=== PATIENT | female | born 1990 | race American Indian/Alaskan Native ===

== ENCOUNTER 2018-02-17 13:35 | Emergency (ER) | payer MEDICAID ==
[2018-02-17 14:17] LABS: HCG Qualitative,Urine Positive (Negative)
[2018-02-17 14:20] LABS: Bilirubin,Urine NEG (Negative); Blood,Urine NEG (Negative); Color,Urine Yellow (Yellow); Mucus,Urine FEW /HPF; Protein,Urine <15 mg/dL mg/dL (Negative); Urobilinogen,Urine < 2.0 mg/dL (<2.0)
--- NOTE | 2018-02-17 16:28 | Emergency Department Report ---
Blank Doc - Documentation Documentation: Patient's 27-year-old female who states that last night while laying in bed her "water broke". Patient states she has some abdominal cramping as suprapubic region as well. Patient denies any vaginal bleeding. Patient states she is approximately 14-16 weeks . Patient has not had adequate care as of yet. On brief physical exam patient has no acute abdominal pain. Patient will be sent for ultrasound clot will be ordered
--- NOTE | 2018-02-17 17:16 | Emergency Department Report ---
<FERNANDO SIMMS ROMAINROXANE - Last Filed: 02/17/18 19:13> ED Female HPI - General Chief complaint: OB/Uterine Contractions Stated complaint: POSS MISCARRIAGE/PAIN Time Seen by Provider: 02/17/18 16:21 Source: patient Mode of arrival: Ambulatory Limitations: No Limitations - History of Present Illness Initial comments: This is a 27-year-old -[place] female who presents with abdominal cramping and an vaginal discharge during . She is 17 weeks and 3 days gestation. Patient reports abdominal pain is crampy sensation and vaginal discharge upon awakening at 5 AM this morning. Patient states when she woke up she woke up in a large puddle of clear liquid. She thought she urinated on herself. Patient states she went to [facility] and decayed her yesterday and has several swabs and felt uncomfortable ever since. Prior to coming in for evaluation here [facility] to [facility]up with [facility] and diagnosed with oligohydramnios. Patient states her friend told her to follow-up in this emergency room for second opinion. Last nausea. 10/18/2017, A0. Patient states she is still having some suprapubic pain and right flank pain that is intermittent. Patient denies vaginal discharge or bleeding, fever, chest pain, frequency, urgency, and dysuria. MD Complaint: vaginal discharge, pelvic pain -: Last night Time: 05:00 Location: suprapubic Radiation: R flank Severity: mild Severity scale (0 -10): 2 Quality: cramping Consistency: now resolved Improves with: none Worsens with: none Are you Now?: Yes Last Menstrual Period: 10/18/17 EDC: 07/25/18 Associated Symptoms: vaginal discharge, abdominal pain. denies: vaginal bleeding, nausea/vomiting, fever/chills, headaches, loss of appetite, dysuria, hematuria, rash, seizure, shortness of breath, syncope, weakness - Related Data Sexually active: Yes : 2 Para: 1 A: 0 Previous Rx's Medication Instructions Recorded Last Taken Type Acetaminophen/Codeine [Tylenol #3] 1 tab PO Q6H PRN #12 tab 03/12/16 Unknown Rx Naproxen [Naprosyn] 500 mg PO BID #30 tablet 03/12/16 Unknown Rx Allergies Allergy/AdvReac Type Severity Reaction Status Date / Time No Known Allergies Allergy Unverified 03/11/16 22:09 ED Review of Systems ROS: Stated complaint: POSS MISCARRIAGE/PAIN Other details as noted in HPI Constitutional: denies: chills, fever Respiratory: denies: cough, shortness of breath, wheezing Cardiovascular: denies: chest pain, palpitations Gastrointestinal: abdominal pain (abdominal cramping). denies: nausea, diarrhea Genitourinary: discharge (clear discharge). denies: urgency, dysuria Musculoskeletal: denies: back pain, joint swelling, arthralgia Skin: denies: rash, lesions Neurological: denies: headache, weakness, paresthesias Psychiatric: denies: anxiety, depression ED Past Medical Hx - Past Medical History Hx Asthma: Yes Additional medical history: Anemia, Sickle Cell Trait, Thryroid Disease. - Surgical History Past Surgical History?: No - Social History Smoking Status: Never Smoker Substance Use Type: None - Medications Home Medications: Home Medications Medication Instructions Recorded Confirmed Last Taken Type Acetaminophen/Codeine [Tylenol #3] 1 tab PO Q6H PRN #12 tab 03/12/16 Unknown Rx Naproxen [Naprosyn] 500 mg PO BID #30 tablet 03/12/16 Unknown Rx ED Physical Exam - General Limitations: No Limitations General appearance: alert, in no apparent distress, obese (morbidly obese) - Respiratory Respiratory exam: Present: normal lung sounds bilaterally. Absent: respiratory distress - Cardiovascular Cardiovascular Exam: Present: regular rate, normal rhythm. Absent: systolic murmur, diastolic murmur, rubs, gallop - GI/Abdominal GI/Abdominal exam: Present: soft, tenderness (suprapubic tenderness), normal bowel sounds. Absent: distended, guarding, rebound, rigid, organomegaly, mass - Back Exam Back exam: Present: normal inspection - Neurological Exam Neurological exam: Present: alert, oriented X3 - Psychiatric Psychiatric exam: Present: normal affect, normal mood - Skin Skin exam: Present: warm, dry, intact, normal color. Absent: rash ED Course Vital Signs 02/17/18 02/17/18 13:57 19:56 Temperature 98.9 F 97.6 F Pulse Rate 100 H 76 Respiratory 18 16 Rate Blood Pressure 134/82 Blood Pressure 137/80 [Left] O2 Sat by Pulse 100 99 Oximetry ED Medical Decision Making - Lab Data Lab Results 02/17/18 02/17/18 Range/Units 14:09 16:47 HCG, Quant 62077 H (0-4) mIU/mL Urine Color Yellow (Yellow) Urine Turbidity Clear (Clear) Urine pH 7.0 (5.0-7.0) Ur Specific [place] 1.017 (1.003-1.030) Urine Protein <15 mg/dl (Negative) mg/dL Urine Glucose (UA) Neg (Negative) mg/dL Urine Ketones 20 (Negative) mg/dL Urine Blood Neg (Negative) Urine Nitrite Neg (Negative) Ur Reducing Substances Not Reportable Urine Bilirubin Neg (Negative) Urine Ictotest Not Reportable Urine Urobilinogen < 2.0 (<2.0) mg/dL Ur Leukocyte Esterase Tr (Negative) Urine WBC (Auto) 1.0 (0.0-6.0) /HPF Urine RBC (Auto) 1.0 (0.0-6.0) /HPF U Epithel Cells (Auto) 1.0 (0-13.0) /HPF Urine Mucus Few /HPF Urine HCG, Qual Positive A (Negative) - Medical Decision Making Patient was examined by me in the emergency room. Vitals are normal and patient is in no acute distress. Obtained labs and OB ultrasound. Ultrasound is pending. Chart is signed over to Simran Olvera Critical care attestation.: If time is entered above; I have spent that time in minutes in the direct care of this critically ill patient, excluding procedure time. ED Disposition Clinical Impression: Oligohydramnios Qualifiers: Fetus number: single or unspecified fetus Trimester: first trimester Qualified Code(s): O41.01X0 - Oligohydramnios, first trimester, not applicable or unspecified Disposition: DC-01 TO HOME OR SELFCARE Condition: Stable Additional Instructions: Please follow up with her primary [facility] provider in the next 2 days to be evaluated. I have given U report as well as to discuss for your convenience to give clear [facility] doctor. Please refrain from having intercourse. Bed rest until he has followed up with her OB doctor. Referrals: PRIMARY CARE, [Primary Care Provider] - 3-5 Days Forms: Work/School Release Form(ED) <ISRA PARSONS - Last Filed: 02/22/18 06:21> ED Medical Decision Making - Radiology Data Radiology results: report reviewed FINAL REPORT PROCEDURE: US OB gt; = 14 WEEKS FETUS TECHNIQUE: Real-time transabdominal sonography of the uterus, placenta, amniotic fluid, adnexa, and fetus was performed with image documentation. Measurements were obtained to determine age/size. M-mode Doppler was used to document heartbeat. CPT 53656 HISTORY: preg with abd cramps COMPARISON: No prior studies are available for comparison. FINDINGS: ADDITIONAL GESTATION: None. GENERAL: IUP: Single living intrauterine . Position: Cephalic Placental position: Posterior and grade 0, without previa. Amniotic fluid volume: No amniotic fluid is identified MATERNAL: Uterus: Within normal limits. Cervical length: 4.1 centimeters cm. Internal Os: Not well resolved FETUS: Heart rate and rhythm: 143 BPM, Regular. anatomic survey: Not performed MEASUREMENTS: BPD: 3.7 centimeters, 17 weeks 2 days HC: 14.1 centimeters, 17 weeks 3 days AC: 4.2 centimeters, 17 weeks 0 days FL: 2.6 centimeters, 17 weeks 5 days Mean Gestational Age (composite criteria): 17 weeks 3 days Ratio biometry: Normal. Estimated Weight: 192 grams, 40th percentile by LMP. Interval growth: Appropriate. Estimated Due Date (earliest scan): 07/25/2018 IMPRESSION: Single intrauterine gestation at 17 weeks 3 days. Estimated due date: 07/25/2018. Oligohydramnios; no amniotic fluid is seen. Correlate for rupture of membranes. Transcribed By: [facility] Dictated By: NAON DUMONT M.D. Electronically Authenticated By: NANO DUMONT M.D. Signed Date/Time: 02/17/181917 DD/ 17 TD/TT: 02/17/181917 - Medical Decision Making Provider picked up this patient from the [facility]and[facility]ouch[facility] Simms nurse practitioner. Received a call from radiology stating that patient has no amniotic fluid. Spoke to Dr. Cole from [facility] that I call from [place]. He reports that he would like to see the patient in the office in the next day or 2 to discuss different options. Discussed the patient that she needs to follow back up with her [facility] I have obtained a disc of her ultrasound to take into the office. I will give patient a copy of her results as well. Patient verbalized understanding ED Disposition Is pt being admited?: No Does the pt Need Aspirin: No
--- NOTE | 2018-02-17 19:19 | Ultrasound Report ---
FINAL REPORT PROCEDURE: US OB > = 14 WEEKS FETUS TECHNIQUE: Real-time transabdominal sonography of the uterus, placenta, amniotic fluid, adnexa, and fetus was performed with image documentation. Measurements were obtained to determine age/size. M-mode Doppler was used to document heartbeat. CPT 68040 HISTORY: preg with abd cramps COMPARISON: No prior studies are available for comparison. FINDINGS: ADDITIONAL GESTATION: None. GENERAL: IUP: Single living intrauterine . Position: Cephalic Placental position: Posterior and grade 0, without previa. Amniotic fluid volume: No amniotic fluid is identified MATERNAL: Uterus: Within normal limits. Cervical length: 4.1 centimeters cm. Internal Os: Not well resolved FETUS: Heart rate and rhythm: 143 BPM, Regular. anatomic survey: Not performed MEASUREMENTS: BPD: 3.7 centimeters, 17 weeks 2 days HC: 14.1 centimeters, 17 weeks 3 days AC: 4.2 centimeters, 17 weeks 0 days FL: 2.6 centimeters, 17 weeks 5 days Mean Gestational Age (composite criteria): 17 weeks 3 days Ratio biometry: Normal. Estimated Weight: 192 grams, 40th percentile by LMP. Interval growth: Appropriate. Estimated Due Date (earliest scan): 07/25/2018 IMPRESSION: Single intrauterine gestation at 17 weeks 3 days. Estimated due date: 07/25/2018. Oligohydramnios; no amniotic fluid is seen. Correlate for rupture of membranes.
[2018-02-17 19:57] VITALS: BP 137/80
== END 2018-02-17 20:05 | disposition home or self-care (01) ==
LOC: ED 13:35
DX: O41.02X0 Oligohydramnios, second trimester, not applicable or unspecified (principal); O99.512 Diseases of the respiratory system complicating pregnancy, second trimester; O99.012 Anemia complicating pregnancy, second trimester; D57.80 Other sickle-cell disorders without crisis; O99.282 Endocrine, nutritional and metabolic diseases complicating pregnancy, second trimester; E07.89 Other specified disorders of thyroid; Z3A.17 17 weeks gestation of pregnancy
CPT/HCPCS: 36415; 76805; 81001; 81025; 84702